=== PATIENT | male | born 1940 | race Caucasian/White ===

== ENCOUNTER 2022-10-02 14:28 | Emergency (ER) | payer OTHER, SELFPAY ==
[2022-10-02] VITALS (10 sets, daily range): BP systolic 142–160; BP diastolic 74–91; PULSE 57–70; RESP 13–23; TEMP 36.1; O2SAT 92–98; BMI 25.4
[2022-10-02] MEDS: ONDANSETRON 4 MG/2 ML INJ IV (15:11)
[2022-10-02 15:12] LABS: Add Manual Diff / Slide Review NO; Basophils Absolute Auto 0 /uL (0-100); Basophils Percent Auto 0.2 % (0-2); Eosinophils Absolute Auto 0 /uL (0-450); Eosinophils Percent Auto 0.2 % (2-4); Hematocrit 41.8 % (41-53); Hemoglobin 13.7 g/dL (13.5-17.5); Lymphocytes Absolute Auto 1400 /uL (1100-4500); Lymphocytes Percent Auto 16.9 % (25-40); Mean Corpuscular HGB Conc 32.7 % (30-36); Mean Corpuscular Hemoglobin 31.6 PG (26-34); Mean Corpuscular Volume 96.6 fL (80-100); Monocytes Absolute Auto 800 /uL (0-900); Monocytes Percent Auto 9.4 % (3-14); Neutrophils Absolute Auto 6300 /uL (1500-7000); Neutrophils Percent Auto 73.3 % (50-75); Platelet Count 139 X10^3/uL (150-400); Red Blood Cell Count 4.33 X10^6/uL (4.5-5.9); Red Cell Distribution Width 13.7 % (11.6-14.8); White Blood Cell Count 8.6 X10^3/uL (4.5-11.0)
[2022-10-02 15:15] LABS: Alanine Aminotransferase 22 IU/L (<50); Albumin 3.8 g/dL (3.5-5.0); Albumin Globulin Ratio 1.2 (1.0-2.8); Alkaline Phosphatase 73 U/L (38-126); Aspartate Aminotransferase 26 IU/L (17-59); BUN Creatinine Ratio 19.5 (6-22); Bilirubin Total 0.8 mg/dL (0.2-1.3); Blood Urea Nitrogen 17 mg/dL (9-20); Calcium 8.6 mg/dL (8.4-10.2); Carbon Dioxide 25 mmol/L (22-32); Chloride 106 mmol/L (98-107); Estimated Glomerular Filt Rate > 60 mL/min (>60); Globulin 3.2 g/dL (1.7-4.1); Glucose 114 mg/dL (80-110); HEMOLYSIS < 15 (0-50); Lipase 41 U/L (23-300); Potassium 3.8 mmol/L (3.4-5.1); Sodium 138 mmol/L (137-145)
--- NOTE | 2022-10-02 15:32 | DI.CT.S_ITS ---
PROCEDURE: CT ANGIO HEAD AND NECK INDICATIONS: dizzy with severe vomiting TECHNIQUE: Noncontrast images were performed earlier in the day and not repeated. After the administration of intravenous contrast, 1 mm thick sections acquired from the aortic arch through the [place]. Post-contrast 4.5 mm thick sections then re-acquired from the foramen magnum to the vertex. 3-dimensional qwkxplx-lilauoikt-ynawqpppka (MIP) and/or volume rendering reformats were acquired of the central intracranial vasculature and neck separately. For radiation dose reduction, the following was used: automated exposure control, adjustment of mA and/or kV according to patient size. COMPARISON: [facility], CT, CT STROKE, 10/02/2022, 15:44. [facility], CT, BRAIN W/O CONTRAST, 03/17/2013, 12:53. FINDINGS: Image quality: Excellent. BRAIN: CSF spaces: Ventricles are normal in size and shape. Basal cisterns are patent. No extra-axial fluid collections. Brain: No midline shift. No intracranial bleeds or masses. Funes-white matter interface appears intact. Skull and face: Calvarium and facial bones appear intact, without suspicious lesions. Orbits appear normal. Sinuses: Sinuses and mastoids are clear. HEAD CT ANGIOGRAPHY: Anterior circulation: Intracranial internal carotid arteries are normal in size and flow. The flow within the paired anterior cerebral arteries is normal and symmetric. The flow within the middle cerebral arteries is normal and symmetric. The anterior communicating artery is seen. No aneurysms are seen. Posterior circulation: Visualized portions of the vertebral arteries demonstrate normal caliber, and join to form a normal appearing basilar artery. Flow within the posterior cerebral arteries is normal and symmetric. No aneurysms are seen. NECK CT ANGIOGRAPHY: Carotid system: The great vessels demonstrate a conventional anatomy as they arise from the aortic arch. The origins of the common carotid arteries appear patent. The common carotid arteries demonstrate normal caliber and courses. The bifurcation regions are both widely patent. The internal carotid arteries demonstrate normal calibers and courses. Posterior circulation: The origins of the vertebral arteries both appear widely patent. The more superior extracranial portions of both vertebral arteries also demonstrate normal courses and calibers. They join to form a normal appearing basilar artery. Soft tissues: Visualized neck soft tissues demonstrate no suspicious abnormalities. Bones: No suspicious bony lesions. Visualized cervical spine appears normally aligned. Remote right superior anterior fractures can be seen. Moderate cervical spine degenerative changes are seen. IMPRESSION: No significant intracranial arterial abnormality is seen. Within the arteries of the neck, no hemodynamically significant stenosis can be seen. No findings of dissection are seen. Additional findings: Moderate cervical spine degenerative change Remote right-sided rib fractures Note: Case discussed by telephone with Dr. Lorenzo at 3:05 p.m. on October 02, 2022. Any quantitative measurements of stenosis were performed using NASCET criteria. Dictated by: Indio Candelaria M.D. on 10/02/2022 at 15:09 Approved by: Indio Candelaria M.D. on 10/02/2022 at 15:11
--- NOTE | 2022-10-02 15:32 | DI.CT.S_ITS ---
PROCEDURE: CT STROKE INDICATIONS: dizzy with severe vomiting TECHNIQUE: Noncontrast 4.5 mm thick angled axial sections acquired from the foramen magnum to the vertex, with coronal reformats. For radiation dose reduction, the following was used: automated exposure control, adjustment of mA and/or kV according to patient size. COMPARISON: [facility], CT, CT ANGIO HEAD AND NECK, 10/02/2022, 15:44. FINDINGS: Image quality: Mild streak artifact can be seen through the skull base. CSF spaces: Basal cisterns are patent. No extra-axial fluid collections. The ventricles are symmetric in size and shape. Brain: No intracranial bleeds or masses. There is cerebral volume loss for age, with resultant ventricular and sulcal prominence. There are periventricular and deep white matter chronic small vessel ischemic changes. There is intracranial internal carotid artery atherosclerosis. Skull and face: Calvarium and visualized facial bones appear intact, without suspicious lesions. Sinuses: Visualized sinuses and mastoids are clear. IMPRESSION: No acute intracranial hemorrhage is seen. No acute intracranial process is seen. Note: Case discussed by telephone with Dr. Lorenzo at 3:05 p.m. [place] time on October 02, 2022. This study fulfills neurological imaging criteria for inclusion or exclusion of acute stroke therapies based on available published neurological guidelines. Dictated by: Indio Candelaria M.D. on 10/02/2022 at 15:04 Approved by: Indio Candelaria M.D. on 10/02/2022 at 15:07
[2022-10-02 15:48] LABS: Creatine Kinase 35 U/L (55-170)
[2022-10-02 15:52] LABS: Influenza A - CEPHEID Flu A NEGATIVE (NEGATIVE); Influenza B - CEPHEID Flu B NEGATIVE (NEGATIVE); Respiratory Syncytial Virus Negative (Negative)
--- NOTE | 2022-10-02 15:56 | ED.NAVMDI ---
HPI - Nausea/Vomiting/Diarrhea General Chief complaint: Nausea/Vomiting/Diarrhea Stated complaint: vomiting,nausea, weakness Time Seen by Provider: 10/02/22 15:15 Source: patient and family Mode of arrival: Wheelchair History of Present Illness HPI Narrative: Patient is an 82-year-old healthy male who presents with nausea vomiting and dizziness. He says he felt well this morning he ate his breakfast he went on his daily walk with a 500 ft elevation, when suddenly at 1:30 a.m. this afternoon he felt like he was on a boat and had some disequilibrium. This caused him to be severely nauseous he is actively vomiting he has a very slight headache. He denies any chest pain or palpitations. He has no numbness tingling or weakness. He has 1 prior history of vertigo but that was when he was climbing. No previous episodes. He says this is feeling much worse. No abdominal pain no cough. Patient and initially went to the walk-in clinic where he was appropriately sent to the ED for further evaluation Related Data Previous Rx's Medication Instructions Recorded meclizine 25 mg tablet 25 mg PO TID PRN dizziness #10 tabs 10/02/22 ondansetron 4 mg disintegrating 4 mg PO Q8H PRN nausea and 10/02/22 tablet vomiting #10 tabs Allergies Allergy/AdvReac Type Severity Reaction Status Date / Time No Known Drug Allergies Allergy Verified 10/02/22 14:37 Review of Systems Review of Systems ROS Unobtainable: All systems reviewed & are unremarkable except as noted in HPI and below Patient History Social History Smoking Status: Never smoker Smoking Status: Never smoker alcohol intake frequency: 0-2 drinks per day Substance Use Type: does not use Exam Initial Vital Signs Initial Vital Signs: Vital Signs Temperature 97.0 F L 10/02/22 14:37 Pulse Rate 57 L 10/02/22 14:37 Respiratory Rate 18 10/02/22 14:37 Blood Pressure 142/76 H 10/02/22 14:37 Pulse Oximetry 97 10/02/22 14:37 Oxygen Delivery Method 10/02/22 14:37 GENERAL: Alert 82-year-old male actively vomiting HEENT: Head atraumatic,EOMI, pupils reactive, no nystagmus face symmetric, moist mucous membranes CARDIOVASCULAR: Regular rate and rhythm without murmurs, rubs or gallops. RESPIRATORY: Breath sounds equal bilaterally, no wheezes rales or rhonchi. ABDOMEN: Soft, nontender. Normoactive bowel sounds all 4 quadrants. No guarding or rebound. EXTREMITIES: Normal range of motion, no clubbing or edema. Neurovascularly intact NEUROLOGICAL: Alert and oriented x4.Normal gait and speech. Cranial nerves II through XII grossly intact. Good ijneot-jy-hxsp, good vbqh-uj-bnzy, strength equal bilaterally, no dysarthria or aphasia, sensation in tact to soft touch bilaterally, no visual changes, no facial droop SKIN: Warm, dry, no laceration, no petechiae, no rashes or lesions. Course Orders Ordered: Discontinued Medications Lorazepam (Lorazepam 2 Mg/Ml Inj) 0.5 mg IV NOW ONE Stop: 10/02/22 16:07 Last Admin: 10/02/22 16:19 Dose: 0.5 mg Documented By: AT Ondansetron HCl (Ondansetron 4 Mg/2 Ml Inj) 4 mg IV NOW PRN PRN Reason: Nausea And Vomiting Last Admin: 10/02/22 15:11 Dose: 4 mg Documented By: MLM Ondansetron HCl (Ondansetron 4 Mg Odt Prepack) 1 bottle MISC SEEINSTR ONE Stop: 10/02/22 17:51 Last Admin: 10/02/22 18:19 Dose: 1 bottle Documented By: AT Vital Signs Vital signs: Vital Signs - 8 hr 10/02/22 14:37 10/02/22 15:28 10/02/22 15:30 Temperature 97.0 F L Pulse Rate 57 L 66 65 Respiratory Rate 18 13 20 Blood Pressure 142/76 H Pulse Oximetry 97 98 Oxygen Delivery Method Room Air 10/02/22 15:34 10/02/22 15:34 10/02/22 16:00 Temperature Pulse Rate 62 63 Respiratory Rate 16 18 Blood Pressure 152/74 H Pulse Oximetry 98 97 Oxygen Delivery Method Room Air 10/02/22 16:08 10/02/22 16:08 Temperature Pulse Rate 70 Respiratory Rate 23 Blood Pressure 160/91 H Pulse Oximetry 96 Oxygen Delivery Method Room Air MDM - Nausea/Vomiting/Diarrhea Lab Data 10/02/22 14:45 10/02/22 14:45 Labs: Lab Results 10/02/22 10/02/22 10/02/22 Range/Units 14:45 14:45 14:45 WBC 8.6 (4.5-11.0) X10^3/uL RBC 4.33 L (4.5-5.9) X10^6/uL Hgb 13.7 (13.5-17.5) g/dL Hct 41.8 (41-53) % MCV 96.6 (80-100) fL MCH 31.6 (26-34) PG MCHC 32.7 (30-36) % RDW 13.7 (11.6-14.8) % Plt Count 139 L (150-400) X10^3/uL Neut % (Auto) 73.3 (50-75) % Lymph % (Auto) 16.9 L (25-40) % Boyd % (Auto) 9.4 (3-14) % Eos % (Auto) 0.2 L (2-4) % Baso % (Auto) 0.2 (0-2) % Neut # (Auto) 6300 (8630-3533) /uL Lymph # (Auto) 1400 (7212-6185) /uL Boyd # (Auto) 800 (0-900) /uL Eos # (Auto) 0 (0-450) /uL Baso # (Auto) 0 (0-100) /uL Sodium 138 (137-145) mmol/L Potassium 3.8 (3.4-5.1) mmol/L Chloride 106 (98-107) mmol/L Carbon Dioxide 25 (22-32) mmol/L BUN 17 (9-20) mg/dL Creatinine 0.87 (0.66-1.25) mg/dL Estimated GFR > 60 (>60) mL/min BUN/Creatinine Ratio 19.5 (6-22) Glucose 114 H (80-110) mg/dL Lactate (0.7-2.1) mmol/L Calcium 8.6 (8.4-10.2) mg/dL Total Bilirubin 0.8 (0.2-1.3) mg/dL AST 26 (17-59) IU/L ALT 22 (<50) IU/L Alkaline Phosphatase 73 (38-126) U/L Total Creatine Kinase 35 L (55-170) U/L CK-MB (CK-2) TNP CK-MB (CK-2) Rel Index TNP Troponin I < 0.012 (0.01-0.034) ng/mL Total Protein 7.0 (6.3-8.2) g/dL Albumin 3.8 (3.5-5.0) g/dL Globulin 3.2 (1.7-4.1) g/dL Albumin/Globulin Ratio 1.2 (1.0-2.8) Lipase 41 (23-300) U/L Procalcitonin (<0.5) ng/mL SARS-CoV-2 (PCR) (Negative) Influenza A (RT-PCR) (NEGATIVE) Influenza B (RT-PCR) (NEGATIVE) RSV (PCR) (Negative) 10/02/22 10/02/22 10/02/22 Range/Units 14:45 14:45 14:50 WBC (4.5-11.0) X10^3/uL RBC (4.5-5.9) X10^6/uL Hgb (13.5-17.5) g/dL Hct (41-53) % MCV (80-100) fL MCH (26-34) PG MCHC (30-36) % RDW (11.6-14.8) % Plt Count (150-400) X10^3/uL Neut % (Auto) (50-75) % Lymph % (Auto) (25-40) % Boyd % (Auto) (3-14) % Eos % (Auto) (2-4) % Baso % (Auto) (0-2) % Neut # (Auto) (1906-3440) /uL Lymph # (Auto) (7651-4505) /uL Boyd # (Auto) (0-900) /uL Eos # (Auto) (0-450) /uL Baso # (Auto) (0-100) /uL Sodium (137-145) mmol/L Potassium (3.4-5.1) mmol/L Chloride (98-107) mmol/L Carbon Dioxide (22-32) mmol/L BUN (9-20) mg/dL Creatinine (0.66-1.25) mg/dL Estimated GFR (>60) mL/min BUN/Creatinine Ratio (6-22) Glucose (80-110) mg/dL Lactate 1.0 (0.7-2.1) mmol/L Calcium (8.4-10.2) mg/dL Total Bilirubin (0.2-1.3) mg/dL AST (17-59) IU/L ALT (<50) IU/L Alkaline Phosphatase (38-126) U/L Total Creatine Kinase (55-170) U/L CK-MB (CK-2) CK-MB (CK-2) Rel Index Troponin I (0.01-0.034) ng/mL Total Protein (6.3-8.2) g/dL Albumin (3.5-5.0) g/dL Globulin (1.7-4.1) g/dL Albumin/Globulin Ratio (1.0-2.8) Lipase (23-300) U/L Procalcitonin 0.04 (<0.5) ng/mL SARS-CoV-2 (PCR) Negative (Negative) Influenza A (RT-PCR) Flu a negative (NEGATIVE) Influenza B (RT-PCR) Flu b negative (NEGATIVE) RSV (PCR) Negative (Negative) Urine Dip Bedside Urine Glucose Negative Bedside Urine Bilirubin - Negative Bedside Urine Ketone +/- 5 Urine Specific [place] 1.015 Bedside Urine Occult Blood - Negative Bedside Urine pH 6.0 Bedside Urine Protein - Negative Bedside Urine Urobilinogen - Negative Bedside Urine Nitrite - Negative Bedside Urine Leukocytes - Negative Esterase Imaging Data CT scan - head: Radiologist's Impression: Signed Patient: Scott Ott MR#: [id number] : 1940 Acct:[id number] Age/Sex: 82 / M Date of Service: 10/02/22 Loc: ED Accession Number: [id number] ?? Procedure: CT Stroke Ordering Provider: Megan Lorenzo D.O. PROCEDURE:? CT STROKE ? INDICATIONS:? dizzy with severe vomiting ? TECHNIQUE:? Noncontrast 4.5 mm thick angled axial sections acquired from the foramen magnum to the vertex, with coronal reformats.? For radiation dose reduction, the following was used:? automated exposure control, adjustment of mA and/or kV according to patient size.? ? COMPARISON:? [facility], CT, CT ANGIO HEAD AND NECK, 10/02/2022, 15:44. ? FINDINGS:? Image quality:? Mild streak artifact can be seen through the skull base. ? CSF spaces:? Basal cisterns are patent.? No extra-axial fluid collections.? The ventricles are symmetric in size and shape.? ? Brain:? No intracranial bleeds or masses.? There is cerebral volume loss for age, with resultant ventricular and sulcal prominence.? There are periventricular and deep white matter chronic small vessel ischemic changes.? There is intracranial internal carotid artery atherosclerosis.? ? Skull and face:? Calvarium and visualized facial bones appear intact, without suspicious lesions.? ? Sinuses:? Visualized sinuses and mastoids are clear.? ? ? IMPRESSION:? No acute intracranial hemorrhage is seen.? ? No acute intracranial process is seen.? ? ? Note: Case discussed by telephone with Dr. Lorenzo at 3:05 p.m. [place] time on October 02, 2022.? ? This study fulfills neurological imaging criteria for inclusion or exclusion of acute stroke therapies based on available published neurological guidelines.? ? ? Dictated by: Indio Candelaria M.D. on 10/02/2022 at 15:04 ? ? CTA - brain/neck: Radiologist's Impression: DELPHINE Varma [id number] CT Scan Report Signed Patient: Scott Ott MR#: [id number] : 1940 Acct:[id number] Age/Sex: 82 / M Date of Service: 10/02/22 Loc: Accession Number: [id number] ?? Procedure: CT angio head and neck Ordering Provider: Megan Lorenzo D.O. PROCEDURE:? CT ANGIO HEAD AND NECK ? INDICATIONS:? dizzy with severe vomiting ? TECHNIQUE:? Noncontrast images were performed earlier in the day and not repeated.? ? After the administration of intravenous contrast, 1 mm thick sections acquired from the aortic arch through the [place].? Post-contrast 4.5 mm thick sections then re-acquired from the foramen magnum to the vertex.? 3-dimensional qppwcpa-epqxcmqqa-fosvfybzpk (MIP) and/or volume rendering reformats were acquired of the central intracranial vasculature and neck separately. For radiation dose reduction, the following was used:? automated exposure control, adjustment of mA and/or kV according to patient size.? ? COMPARISON:? [facility], CT, CT STROKE, 10/02/2022, 15:44.? [facility], CT, BRAIN W/O CONTRAST, 03/17/2013, 12:53. ? FINDINGS:? Image quality:? Excellent.? ? BRAIN:? CSF spaces:? Ventricles are normal in size and shape.? Basal cisterns are patent.? No extra-axial fluid collections.? ? Brain:? No midline shift.? No intracranial bleeds or masses.? Funes-white matter interface appears intact.? ? Skull and face:? Calvarium and facial bones appear intact, without suspicious lesions.? Orbits appear normal.? ? Sinuses:? Sinuses and mastoids are clear.? ? HEAD CT ANGIOGRAPHY:? Anterior circulation:? Intracranial internal carotid arteries are normal in size and flow.? The flow within the paired anterior cerebral arteries is normal and symmetric.? The flow within the middle cerebral arteries is normal and symmetric.? The anterior communicating artery is seen.? No aneurysms are seen.? ? Posterior circulation:? Visualized portions of the vertebral arteries demonstrate normal caliber, and join to form a normal appearing basilar artery.? Flow within the posterior cerebral arteries is normal and symmetric.? No aneurysms are seen.? ? NECK CT ANGIOGRAPHY:? Carotid system:? The great vessels demonstrate a conventional anatomy as they arise from the aortic arch.? The origins of the common carotid arteries appear patent.? The common carotid arteries demonstrate normal caliber and courses.? The bifurcation regions are both widely patent.? The internal carotid arteries demonstrate normal calibers and courses.? ? Posterior circulation:? The origins of the vertebral arteries both appear widely patent.? The more superior extracranial portions of both vertebral arteries also demonstrate normal courses and calibers.? They join to form a normal appearing basilar artery.? ? Soft tissues:? Visualized neck soft tissues demonstrate no suspicious abnormalities.? ? Bones:? No suspicious bony lesions.? Visualized cervical spine appears normally aligned.? Remote right superior anterior fractures can be seen.? Moderate cervical spine degenerative changes are seen. ? ? IMPRESSION:? No significant intracranial arterial abnormality is seen.? ? Within the arteries of the neck, no hemodynamically significant stenosis can be seen. ? No findings of dissection are seen. ? ? ? Additional findings:? Moderate cervical spine degenerative change Remote right-sided rib fractures ? ? Note: Case discussed by telephone with Dr. Lorenzo at 3:05 p.m. on October 02, 2022.? ? ? Any quantitative measurements of stenosis were performed using NASCET criteria.? ? ? Dictated by: Indio Candelaria M.D. on 10/02/2022 at 15:09 ? ? Approved by: Indio Candelaria M.D. on 10/02/2022 at 15:11 ? MR brain: Radiologist's Impression: Magnetic Resonance Report Signed Patient: Scott Ott MR#: [id number] : 1940 Acct:[id number] Age/Sex: 82 / M Date of Service: 10/02/22 Loc: ED Accession Number: [id number] ?? Procedure: MR head/brain wo con Ordering Provider: Megan Lorenzo D.O. PROCEDURE:? MR HEAD/BRAIN WO CON ? INDICATIONS:? dizzy ? posterior stroke ? TECHNIQUE:? Non-contrast axial T1 spin echo, axial T2 fast spin echo, sagittal and axial FLAIR, coronal T2 fast spin echo, axial gradient echo, axial diffusion and ADC through the brain.? ? COMPARISON:? [facility], CT, CT STROKE, 10/02/2022, 15:44.? [facility], CT, CT ANGIO HEAD AND NECK, 10/02/2022, 15:44.? [facility], CT, BRAIN W/O CONTRAST, 03/17/2013, 12:53. ? FINDINGS:? Image quality:? This examination is limited by involuntary motion artifact.? ? CSF spaces:? Ventricles appear symmetric in size and shape.? Basal cisterns are patent.? No extra-axial fluid collections.? ? Brain:? No intracranial bleeds or mass effects.? There is cerebral volume loss for age.? There are periventricular and deep white matter chronic small vessel ischemic changes.? Brainstem appears normal.? Diffusion-weighted images show no acute ischemic insults.? No chronic ischemic insults.? Normal intravascular flow voids are present.? ? Skull and face:? Calvarial bone marrow is normal in signal.? Orbits are normal.? Note is made of bilateral lens replacements. ? Sinuses:? Sinuses and mastoids are clear.? ? ? IMPRESSION:? No findings of acute or subacute infarction can be seen, including involving the cerebellum. ? ? Dictated by: Indio Candelaria M.D. on 10/02/2022 at 16:14 ? ? ECG Data Interpretation: Normal sinus rhythm rate 62 TX interval 174 QRS [address] changes no T-wave inversions, no priors to compare MDM Narrative Medical decision making narrative: Patient is a relatively healthy very active 82-year-old male who with sudden onset of dizziness with vomiting. No focal deficits however still very nauseous with dry heaving. Concern for posterior stroke versus vertigo. CT angio was negative however still nauseous with vomiting MRI was ordered in his also negative. Blood work is overall reassuring. No evidence of anemia leukocytosis or electrolyte abnormality. He is given Ativan to help with a persistent nausea which he responds well to. It sounds as though he did have 1 episode of vertigo on his 82th birthday at [place]. CVA has been ruled out with appropriate imaging his symptoms improved with Ativan. He is able to ambulate in the ED without any difficulty. Likely diagnosis is positional vertigo. Discussion with him about treatment at home and when to return to ED. apparently had this and is familiar with the condition. Discharge Plan Departure Patient Disposition: Home Clinical Impression: Vertigo Instructions: Vertigo Activity Restrictions/Additional Instructions: *You have been diagnosed with vertigo *What to do: At this time you had a CT and MRI which did not show any sort of stroke. It is most likely that you are how experiencing vertigo. This should resolve spontaneously. *Continue to take medications as directed Zofran 4 mg every 8 hours if needed for nausea vomiting Meclizine 25 mg every 8 hours if needed for dizziness this can cause drowsiness *Follow up with your primary care provider in 2-3 days or call [phone] *Return to ER if you should have increasing dizziness worsening vomiting numbness tingling weakness falling or any new, worsening or concerning symptoms Prescriptions: New meclizine 25 mg tablet 25 mg PO TID PRN (Reason: dizziness) Qty: 10 0RF ondansetron 4 mg tablet,disintegrating 4 mg PO Q8H PRN (Reason: nausea and vomiting) Qty: 10 0RF Referrals: Miscellaneous,Doctor, [Primary Care Provider] - Stand Alone Forms: Patient Portal/API
[2022-10-02 15:57] LABS: COVID-19 CEPHEID 4-PLEX PCR Negative (Negative)
[2022-10-02 16:01] LABS: Troponin I < 0.012 ng/mL (0.01-0.034)
[2022-10-02 16:06] LABS: Procalcitonin 0.04 ng/mL (<0.5)
--- NOTE | 2022-10-02 16:07 | DI.MRI.S_ITS ---
PROCEDURE: MR HEAD/BRAIN WO CON INDICATIONS: dizzy ? posterior stroke TECHNIQUE: Non-contrast axial T1 spin echo, axial T2 fast spin echo, sagittal and axial FLAIR, coronal T2 fast spin echo, axial gradient echo, axial diffusion and ADC through the brain. COMPARISON: [facility], CT, CT STROKE, 10/02/2022, 15:44. [facility], CT, CT ANGIO HEAD AND NECK, 10/02/2022, 15:44. [facility], CT, BRAIN W/O CONTRAST, 03/17/2013, 12:53. FINDINGS: Image quality: This examination is limited by involuntary motion artifact. CSF spaces: Ventricles appear symmetric in size and shape. Basal cisterns are patent. No extra-axial fluid collections. Brain: No intracranial bleeds or mass effects. There is cerebral volume loss for age. There are periventricular and deep white matter chronic small vessel ischemic changes. Brainstem appears normal. Diffusion-weighted images show no acute ischemic insults. No chronic ischemic insults. Normal intravascular flow voids are present. Skull and face: Calvarial bone marrow is normal in signal. Orbits are normal. Note is made of bilateral lens replacements. Sinuses: Sinuses and mastoids are clear. IMPRESSION: No findings of acute or subacute infarction can be seen, including involving the cerebellum. Dictated by: Indio Candelaria M.D. on 10/02/2022 at 16:14 Approved by: Indio Candelaria M.D. on 10/02/2022 at 16:15
[2022-10-02] MEDS: LORazepam 2 MG/ML INJ 0.5 MG IV (16:19)
--- NOTE | 2022-10-02 17:40 | PC.NURSE ---
Patient ambulatory with steady gait, reports dizziness has resolved.
[2022-10-02] MEDS: ONDANSETRON 4 MG ODT PREPACK 1 BOTTLE MISC (18:19)
== END 2022-10-02 18:29 | disposition home or self-care (01) ==
PROVIDERS: Emergency Provider Emergency Medicine
DX: R42 Dizziness and giddiness (principal); R11.2 Nausea with vomiting, unspecified; Z20.822 Contact with and (suspected) exposure to COVID-19
CPT/HCPCS: 0241U; 36415; 70450; 70496; 70498; 70551; 80053; 81003; 82550; 83605; 83690; 84145; 84484; 85025; 87040; 93005; 96374; 96375; 99284; 99285; J2060; J2405; Q9967